=== PATIENT | female | born 1985 | race Caucasian/White ===

== ENCOUNTER 2021-01-25 14:04 | Inpatient (IN) | payer OTHER ==
[2021-01-29] MEDS ORDERED: Bupivacaine 0.25% HCL 30 ML VIAL ONE (08:00)
[2021-01-29] MEDS ORDERED: ePHEDrine Sulfate 50 MG/10 ML VIAL ONE (08:00)
[2021-01-29] MEDS ORDERED: Ibuprofen 800 MG TAB PO PRN (19:37)
[2021-01-29] MEDS ORDERED: Promethazine HCl 25 MG/ML VIAL IM PRN (19:37)
[2021-01-29] MEDS ORDERED: NS / Oxytocin 40 units/1000ml 1,000 ML IV PRN (19:37)
[2021-01-29] MEDS ORDERED: Lidocaine 1% (PF) 30 ML VIAL SC PRN (19:37)
[2021-01-29] MEDS ORDERED: HYDROcodone/Acetaminophen 5/325 mg Tablet PO PRN ×2 (19:37)
[2021-01-29] MEDS ORDERED: hydrALAZINE 20 MG/ML VIAL SLOW IVP PRN (19:37)
[2021-01-29] MEDS ORDERED: Ondansetron PF 4 MG/2 ML Vial IVP PRN (19:37)
[2021-01-29] MEDS ORDERED: Butorphanol Tartrate 1 MG/ML VIAL SLOW IVP PRN (19:37)
[2021-01-29 20:14] VITALS: BMI 29.7
[2021-01-29] MEDS ORDERED: Misoprostol 100 MCG TAB VAG SCH (20:30)
[2021-01-29 21:04] LABS: Hemoglobin 12.5 g/dL (12.0-15.5); Mean Corpuscular HGB CONC 34.3 g/dL (32.0-36.0); Mean Corpuscular Hemoglobin 32.6 pg (27.0-33.0); Mean Corpuscular Volume 94.8 fl (81.6-98.3); Mean Platelet Volume 11.4 fl (7.4-10.4); Platelet Count 204 10x3/uL (150-450); RBC Distribution Width 13.1 % (11.5-14.5); Red Blood Cell (RBC) Count 3.84 10x6/uL (3.90-5.03); White Blood Cell (WBC) Count 12.6 10x3/uL (3.5-10.5)
[2021-01-29] MEDS: Lactated Ringer's 1,000 ML IV SCH (21:44)
[2021-01-29 21:45] LABS: Hep B Surf Ag Non-Reactive S/CO (NonReactive); Syphilis Antibody Nonreactive (Nonreactive); Syphilis Antibody Index 0.02 S/CO (<1.00 Non-Reactive)
[2021-01-29 22:23] LABS: HBSAg Index 0.12 S/CO (0-0.99)
[2021-01-29] MEDS: Misoprostol 100 MCG TAB VAG SCH (23:59)
[2021-01-30] MEDS: Misoprostol 100 MCG TAB VAG SCH ×3 (04:20→22:12)
[2021-01-30] MEDS: Lactated Ringer's 1,000 ML IV SCH ×5 (04:21→18:58)
[2021-01-30] MEDS ORDERED: NS w/ Oxytocin 30 units 500 ML ONE (06:18)
[2021-01-30] MEDS ORDERED: Fentanyl 4 mcg/Bup 0.1% Cadd 100 ML ONE ×2 (09:43→15:54)
[2021-01-30] MEDS ORDERED: Fentanyl 4 mcg/Bupivacaine 0.1% Cassette 100 ML EPIDURAL SCH (15:45)
[2021-01-30] MEDS ORDERED: diphenhydrAMINE 50 MG/ML VIAL IVP PRN ×2 (15:45→23:03)
[2021-01-30] MEDS ORDERED: Promethazine HCl 25 MG/ML VIAL IM PRN ×2 (15:45→23:03)
[2021-01-30] MEDS ORDERED: Naloxone HCl 0.4 mg/ml Vial IVP PRN ×4 (15:45→23:03)
[2021-01-30] MEDS ORDERED: ePHEDrine 50 MG/ML VIAL SLOW IVP PRN (15:45)
[2021-01-30] MEDS ORDERED: Lactated Ringer's 500 ML IV PRN (15:45)
[2021-01-30] MEDS ORDERED: Acetaminophen 325 MG TAB PO PRN (15:45)
[2021-01-30] MEDS ORDERED: Eucerin (Mineral Oil/Petrolatum,White) 30 gm Jar TOP PRN ×2 (15:45→23:03)
[2021-01-30] MEDS ORDERED: Ondansetron PF 4 MG/2 ML Vial IVP PRN ×2 (15:45→23:03)
[2021-01-30] MEDS ORDERED: Communication Order-Pharmacy FS SCH ×2 (15:45→23:15)
[2021-01-30] MEDS ORDERED: Azithromycin 500 MG VIAL ONE (21:02)
[2021-01-30] MEDS ORDERED: Dexamethasone 4 mg/ml Vial ONE (21:08)
[2021-01-30] MEDS ORDERED: Morphine PF 10 MG/10 ML VIAL ONE (21:09)
[2021-01-30] MEDS ORDERED: Ondansetron PF 4 MG/2 ML Vial ONE (21:09)
[2021-01-30] MEDS ORDERED: Succinylcholine 200 MG/10 ml SYRINGE FS ONE (21:09)
[2021-01-30] MEDS ORDERED: Oxytocin 10 UNITS/ML VIAL ONE (21:10)
[2021-01-30] MEDS ORDERED: PROPOFOL 0 ML ONE (21:10)
[2021-01-30] MEDS ORDERED: Lidocaine 1% PF 5 ML VIAL ONE (21:10)
[2021-01-30] MEDS ORDERED: Fentanyl 100 MCG/2 ML VIAL ONE (21:10)
[2021-01-30] MEDS ORDERED: Bupivacaine 0.25% HCL 30 ML VIAL ONE (21:12)
[2021-01-30] MEDS ORDERED: Ketorolac Tromethamine 30 MG/ML VIAL ONE (21:14)
[2021-01-30] MEDS ORDERED: Midazolam HCl 2 mg/2 ml Vial ONE (21:56)
[2021-01-30] MEDS ORDERED: Ketamine 50 MG/ML (10ML VIAL) ONE (21:56)
[2021-01-30] MEDS ORDERED: Phytonadione Neonatal 1 MG/0.5 ML AMP ONE (22:45)
[2021-01-30] MEDS ORDERED: Erythromycin Base 0.5% Oint 1 GM TUBE ONE (22:45)
[2021-01-30] MEDS ORDERED: Promethazine HCl 25 MG SUPP PR PRN (23:03)
[2021-01-30] MEDS ORDERED: Naloxone HCl 0.4 mg/ml Vial IV PRN (23:03)
[2021-01-30] MEDS ORDERED: L&D-Morphine 4 MG/ML VIAL SLOW IVP PRN (23:03)
[2021-01-30] MEDS ORDERED: Ondansetron HCl/PF 4 MG/2 ML Vial IVP PRN (23:03)
[2021-01-30] MEDS ORDERED: HYDROmorphone 2 MG/ML VIAL SLOW IVP PRN (23:03)
[2021-01-30] MEDS ORDERED: Meperidine HCl/PF 25 MG/ML VIAL SLOW IVP PRN (23:03)
[2021-01-30] MEDS ORDERED: Ketorolac Tromethamine 30 MG/ML VIAL IVP SCH (23:15)
[2021-01-31] MEDS ORDERED: NS w/ Oxytocin 30 units 500 ML ONE (00:09)
[2021-01-31] MEDS: Ketorolac Tromethamine 30 MG/ML VIAL IVP PRN ×2 (00:24→06:04)
[2021-01-31] MEDS ORDERED: Promethazine HCl 25 MG/ML VIAL IM PRN (01:28)
[2021-01-31] MEDS ORDERED: HYDROcodone/Acetaminophen 5/325 mg Tablet PO PRN (01:28)
[2021-01-31] MEDS ORDERED: Ondansetron PF 4 MG/2 ML Vial IVP PRN (01:28)
[2021-01-31] MEDS ORDERED: hydrALAZINE 20 MG/ML VIAL SLOW IVP PRN (01:28)
[2021-01-31] MEDS ORDERED: Lanolin Ointment 7 GM TUBE TOP PRN (01:28)
[2021-01-31] MEDS ORDERED: NS / Oxytocin 40 units/1000ml 1,000 ML IV SCH (01:28)
[2021-01-31] MEDS ORDERED: Bisacodyl 10 MG SUPP PR PRN (01:28)
[2021-01-31] MEDS ORDERED: NS w/ Oxytocin 30 units 500 ML IV SCH (03:00)
[2021-01-31] MEDS ORDERED: Ibuprofen 800 MG TAB PO SCH (06:00)
[2021-01-31] MEDS: Simethicone Chewable 80 MG TAB PO PRN ×2 (06:03→14:14)
[2021-01-31 06:24] LABS: Hemoglobin 10.3 g/dL (12.0-15.5); Mean Corpuscular HGB CONC 33.8 g/dL (32.0-36.0); Mean Corpuscular Hemoglobin 32.6 pg (27.0-33.0); Mean Corpuscular Volume 96.5 fl (81.6-98.3); Mean Platelet Volume 11.5 fl (7.4-10.4); Platelet Count 162 10x3/uL (150-450); RBC Distribution Width 13.3 % (11.5-14.5); Red Blood Cell (RBC) Count 3.16 10x6/uL (3.90-5.03); White Blood Cell (WBC) Count 17.4 10x3/uL (3.5-10.5)
[2021-01-31] MEDS: Ferrous Sulfate 325 MG TAB PO SCH ×2 (07:52→17:08)
[2021-01-31] MEDS: Misoprostol 100 MCG TAB VAG SCH (07:53)
[2021-01-31] MEDS ORDERED: Adacel (T-DAP) 0.5 ML SYRINGE IM ONE (09:00)
[2021-01-31] MEDS: Docusate Calcium (SURFAK) 240 MG CAP PO SCH ×2 (09:32→21:37)
[2021-01-31] MEDS: Prenatal Vitamin 1 TAB PO SCH (09:33)
[2021-01-31] MEDS: HYDROcodone/Acetaminophen 5/325 mg Tablet PO PRN ×3 (09:34→18:05)
[2021-01-31] MEDS ORDERED: Ibuprofen 800 MG TAB ONE ×4 (16:41→16:45)
[2021-02-01] MEDS: Ibuprofen 800 MG TAB PO SCH ×3 (00:06→14:03)
[2021-02-01] MEDS: HYDROcodone/Acetaminophen 5/325 mg Tablet PO PRN ×3 (00:08→14:02)
[2021-02-01] MEDS ORDERED: Ibuprofen 800 MG TAB PO SCH (06:00)
[2021-02-01] MEDS: Docusate Calcium (SURFAK) 240 MG CAP PO SCH (07:48)
[2021-02-01] MEDS: Simethicone Chewable 80 MG TAB PO PRN (07:48)
[2021-02-01] MEDS: Prenatal Vitamin 1 TAB PO SCH (07:48)
[2021-02-01] MEDS: Ferrous Sulfate 325 MG TAB PO SCH (08:12)
[2021-02-01 12:03] VITALS: BP 127/82; TEMP 97.6
== END 2021-02-01 15:40 | disposition home or self-care (01) | DRG 787 ==
LOC: EDSTATUS 17:27 → CSHLD 01-29 19:18 → CSHPP 01-31 01:43
PROVIDERS: ADMIT Obstetrics & Gynecology; ATTEND Obstetrics & Gynecology
PROC: 10D00Z1 Extraction of Products of Conception, Low, Open Approach (ICD-10-PCS; principal; 2021-01-30)
PROC: 3E0P7VZ Introduction of Hormone into Female Reproductive, Via Natural or Artificial Opening (ICD-10-PCS; 2021-01-30)
PROC: 10H07YZ Insertion of Other Device into Products of Conception, Via Natural or Artificial Opening (ICD-10-PCS; 2021-01-30)
PROC: 3E033VJ Introduction of Other Hormone into Peripheral Vein, Percutaneous Approach (ICD-10-PCS; 2021-01-30)
PROC: 10907ZC Drainage of Amniotic Fluid, Therapeutic from Products of Conception, Via Natural or Artificial Opening (ICD-10-PCS; 2021-01-30)
DX: O48.1 Prolonged pregnancy (principal); Q23.1 Congenital insufficiency of aortic valve; Z3A.40 40 weeks gestation of pregnancy; Z37.0 Single live birth; Z20.822 Contact with and (suspected) exposure to COVID-19; O26.893 Other specified pregnancy related conditions, third trimester; O76 Abnormality in fetal heart rate and rhythm complicating labor and delivery; O64.0XX0 Obstructed labor due to incomplete rotation of fetal head, not applicable or unspecified
CPT/HCPCS: 36415; 51702; 85027; 86780; 86850; 86900; 86901; 87340; 87635; J1100; J1885; J2250; J2274; J2405; J2590; J2704; J3010; S0020; U0003; U0005

== ENCOUNTER 2021-01-26 08:57 | Outpatient (CLI) | payer OTHER ==
[2021-01-26 22:12] LABS: SARS-CoV-2 PCR by NAA Not Detected (NotDetected)
== END 2021-01-26 08:58 | disposition home or self-care (01) ==
LOC: CSHLAB 08:57
PROVIDERS: ATTEND Obstetrics & Gynecology
DX: Z20.822 Contact with and (suspected) exposure to COVID-19 (principal)
CPT/HCPCS: 87635; U0003; U0005